=== PATIENT | female | born 1990 | race Caucasian/White ===

== ENCOUNTER → 2016-05-29 | Outpatient (CLI) | payer OTHER ==
[~2016-05-29] MED LIST: ALLEGRA PO; CELEXA PO; CLARITIN10 MG PO; FLEXERIL PO; HYDROCODON-ACE1 EAC1 PO; LIBRAX CAPSULE1 CA1 PO; LORTAB 7.5-5001 TAB PO; NAPROXEN PO; ORTHO TRI-7 DAYSX 3 PO; PHENERGAN25 MG PO; PREVACID PO; PROTONIX PO; REGLAN PO; SYNTHROID0.05 MG PO; WELLBUTRIN XL PO; ZOFRAN PO
--- NOTE | ~2016-05-29 | CR97 ---
[facility] A Service [facility] RADIOLOGY TEXT RESULTS PATIENT: OTONIEL JO LOCATION: [facility] : [birth year] UNIT #: [id number] AGE: [address]: Misa Willis MD SEX: F ORDER DR: [id number] [address] [address] [id number] O MR#: [id number] Acc #: [id number] NAME: OTONIEL JO : 1990 SEX: F STUDY DATE/TIME: 05/29/2016 8:01 UNIT: [facility] ROOM: STUDY DESCRIPTION: CR Esophagram Attending Physician: Misa Willis M.D. Ordering Physician: Misa Willis M.D. Primary Care Physician: Hakan Willis M.D. MEDICAL IMAGING REPORT This report is preliminary unless electronic signature is present EXAM Barium esophagram INDICATION 25-year-old female with difficulty swallowing for 2-3 months. Feels like food getting stuck in throat. The fluoro time was 0.8 minutes. 9 images were saved. COMPARISON No comparisons FINDINGS Evaluation of the cervical esophagus demonstrates no evidence of aspiration or laryngeal penetration. Evaluation of the thoracic esophagus demonstrates normal esophageal caliber. No evidence of stenosis, reflux or hiatal hernia. A 13 mm barium tablet was swallowed and passed through the esophagus into the stomach with ease. IMPRESSION Normal esophagram. Dictated by... Len Bird M.D. THIS IS AN ELECTRONICALLY VERIFIED REPORT Len Bird M.D. at 05/29/2016 4:29 PM Diana TD: 05/29/2016 12:40 JOB #: [id number] [facility] A Service [facility] RADIOLOGY TEXT RESULTS PATIENT: OTONIEL JO LOCATION: [facility] : [birth year] UNIT #: [id number] AGE: [address]: Misa Willis MD SEX: F ORDER DR: MEDICAL IMAGING REPORT Page 1 of 1 COPY
== END | disposition home or self-care (01) ==
LOC: CRAD 07:26
DX: R13.10 Dysphagia, unspecified (principal)
CPT/HCPCS: 74220